=== PATIENT | male | born 1965 | race Caucasian/White ===

== ENCOUNTER 2017-10-13 06:08 | Day surgery (SDC) | payer OTHER ==
[2017-10-13] VITALS (12 sets, daily range): BP systolic 95–125; BP diastolic 56–74; PULSE 68–76; RESP 13–21; Ht 167.6 cm; Wt 53.4 kg
[~2017-10-13] VITALS: Ht 167.6 cm; Wt 53.4 kg
[~2017-10-13 06:08] MED LIST: SOD CHLORIDE 0.9% 1,000 ML IV SCH
[2017-10-13] MEDS ORDERED: LIDOCAINE 1% (MDV) 20 ML INJ ONE (06:56)
[2017-10-13] MEDS ORDERED: FENTAnyl 50 MCG/ML VIAL ONE (06:56)
[2017-10-13] MEDS ORDERED: HEPARIN 1000 UNITS/ML 10 ML INJ ONE (06:56)
[2017-10-13] MEDS ORDERED: IODIXANOL LOCM 100 ML BTL ONE (06:56)
[2017-10-13] MEDS ORDERED: MIDAZOLAM 1 MG/ML 2 ML INJ ONE (06:56)
[2017-10-13] MEDS ORDERED: NITROGLYCERIN (IC) 100 MCG/ML INJ ONE (06:57)
[2017-10-13] MEDS ORDERED: VERAPAMIL 5 MG INJ ONE (06:57)
[2017-10-13 07:00] LABS: BASOPHIL # 0.1 10^3/ul (0.0-0.1); BASOPHILS % 1.2 % (0.0-2.0); EOSINOPHILS # 0.1 10^3/ul (0.0-0.5); EOSINOPHILS % 2.7 % (0.0-7.0); HEMATOCRIT 39.3 % (42.0-52.0); HEMOGLOBIN 13.6 g/dl (14.0-18.0); LYMPHOCYTES # 1.9 10^3/ul (0.8-2.9); LYMPHOCYTES % 38.4 % (15.0-51.0); MEAN CORPUSCULAR HEMOGLOBIN 33.2 pg (29.0-33.0); MEAN CORPUSCULAR HGB CONC 34.6 g/dl (32.0-37.0); MEAN CORPUSCULAR VOLUME 95.9 fl (82.0-101.0); MEAN PLATELET VOLUME 9.8 fl (7.4-10.4); MONOCYTE # 0.5 10^3/ul (0.3-0.9); MONOCYTES % 9.4 % (0.0-11.0); NEUTROPHIL # 2.3 10^3/ul (1.6-7.5); NEUTROPHILS % 48.1 % (39.0-77.0); PLATELET COUNT 213 10^3/UL (140-415); RED CELL DISTRIBUTION WIDTH 13.2 % (11.5-14.5); WHITE BLOOD COUNT 4.9 10^3/ul (4.8-10.8)
[2017-10-13 07:09] LABS: INR 0.83; PROTIME 11.4 Sec (12.2-14.2); PT RATIO 0.9
[2017-10-13 07:14] LABS: CALCIUM 8.9 mg/dl (8.4-10.2); CREATININE 0.68 mg/dl (0.61-1.24); POTASSIUM 4.2 mmol/L (3.5-5.1)
[2017-10-13] MEDS ORDERED: LEVO50TA74 PO (07:23)
[2017-10-13] MEDS ORDERED: ASPI-664 PO (07:23)
[2017-10-13] MEDS ORDERED: CARB200T43 PO (07:23)
[2017-10-13] MEDS ORDERED: ATOR20TA65 PO (07:23)
[2017-10-13] MEDS ORDERED: CHOL500062 PO (07:23)
[2017-10-13] MEDS ORDERED: NALTREXONE ORAL (07:23)
[2017-10-13] MEDS ORDERED: TRAZ50TA18 PO (07:23)
[2017-10-13] MEDS ORDERED: BUPR75TA9 PO (07:23)
[2017-10-13] MEDS ORDERED: SOD CHLORIDE 0.9% 1,000 ML IV SCH (07:51)
--- NOTE | 2017-10-13 07:56 | OPR ---
Date/Time of Note Date/Time of Note DATE: 10/13/17 TIME: 07:53 Operative Report Procedure Date: Oct 13, 2017 Preoperative Diagnosis Chest pain, Positive stress echo Postoperative Diagnosis Non-obstructive coronary atherosclerosis Operation/Procedure Performed Left heart catheterization Surgeon see signature line Special Effects Designer none Anesthesia Type: moderate sedation Estimated Blood Loss: minimal Transfusion none Specimen none Grafts/Implants none Complications none Pt Condition Post Procedure: stable Disposition: PACU Procedure Description DESCRIPTION OF PROCEDURE: The patient placed on quality assurance monitor body, pulse oximetry and supplemental oxygen as necessary. The right groin [] was prepped and draped in a sterile fashion and infiltrated with 1% lidocaine. Via the Seldinger technique, the right femoral artery was accessed. A 6-[place] sheath was inserted and through this the right coronary catheter and left coronary catheter and pigtail were advanced into the right coronary artery and left coronary artery and the left ventricle. Placement confirmed by fluoroscopy and hemodynamics. CATHETERIZATION FINDINGS: 1. Left main: No significant disease. 2. LAD: proximal 30% plaque 3. Circumflex: Medium caliber vessel with no significant disease. 4. Obtuse marginal: Medium caliber vessel with no significant disease. 5. RCA: Large dominant vessel with no significant disease HEMODYNAMICS: LVEDP 15. No significant aortic valve gradient on pigtail pullback. TOTAL CONTRAST: 34cc FLUOROSCOPY TIME: 1.2 minutes. FINAL RESULTS: Non-obstructive coronary atherosclerosis. RECOMMENDATIONS: Medical Management Discharge home REJI GONZALES Oct 13, 2017 07:56
[2017-10-13] MEDS ORDERED: HOLD all METFORMIN and METFORMIN CONTAINING medications for 48 hours post procedure. Chec XX SCH (08:00)
[2017-10-13] MEDS ORDERED: NALOXONE (0.4 MG/ML) INJ ONE (09:18)
--- NOTE | 2017-10-15 13:16 | RADRPT ---
Vent Rate: 68 bpm RR Interval: 0 msec LA Interval: 192 msec QRS Duration: 92 msec QT Interval: 386 msec QTC Interval: 410 msec P-R-T [place]: 54 - 74 - 80 degrees Normal sinus rhythm ST elevation, consider early repolarization, pericarditis, or injury Abnormal ECG Electronically Signed By: Dwayne Dennis [id number]
== END 2017-10-13 09:55 | disposition home or self-care (01) ==
LOC: SDS 06:08
PROVIDERS: ATTEND Internal Medicine
DX: R94.39 Abnormal result of other cardiovascular function study (principal); F17.291 Nicotine dependence, other tobacco product, in remission; R07.9 Chest pain, unspecified
CPT/HCPCS: 80048; 85025; 85610; 93005; 93458; C1887; J1644; J2250; J2310; J3010; Q9967; Z7610

== ENCOUNTER 2018-01-19 08:40 | Day surgery (SDC) | END 2018-01-19 11:16 | disposition home or self-care (01) ==